=== PATIENT | male | born 1950 | race Caucasian/White ===

== ENCOUNTER 2016-10-28 14:14 | Emergency (ER) | payer MEDICARE ==
[~2016-10-28] VITALS: Ht 167.6 cm; Wt 80.0 kg
[2016-10-28] VITALS (7 sets, daily range): BP systolic 131–170; BP diastolic 58–79; PULSE 60–64; RESP 14–16; TEMP 98; O2SAT 96–99
[2016-10-28] MEDS ORDERED: LIPI40TA PO (17:41)
[2016-10-28] MEDS ORDERED: SODIUM CHLOR 0.9% 1000 ML INJ 1,000 ML IV SCH (17:55)
[2016-10-28] MEDS ORDERED: ONDANSETRON HCL 4 MG/2 ML VIAL IVP ONE (18:00)
[2016-10-28] MEDS ORDERED: SODIUM CHLORIDE 0.9% FLUSH 5 ML FLUSH IVF PRN (18:00)
[2016-10-28] MEDS ORDERED: MORPHINE SULFATE 4 MG/ML INJ IV PUSH ONE (18:00)
[2016-10-28 18:01] LABS: AUTOMATED NEUTROPHIL # 12.2 TH/MM3 (1.8-7.7); BASOPHIL # 0.1 TH/MM3 (0-0.2); BASOPHIL % 0.4 % (0.0-2.0); EOSINOPHIL % 0.1 % (0.0-4.0); HEMATOCRIT 43.1 % (39.0-51.0); HEMO FLAGS DIFF FINAL; LYMPH % 9.8 % (9.0-44.0); LYMPHOCYTE # 1.4 TH/MM3 (1.0-4.8); MEAN CELL VOLUME 93.5 FL (80.0-100.0); MEAN CORPUSCULAR HEMOGLOBIN 31.9 PG (27.0-34.0); MEAN CORPUSCULAR HGB CONC 34.2 % (32.0-36.0); MONO % 5.1 % (0.0-8.0); NEUT % 84.6 % (16.0-70.0); PLATELET COUNT 265 TH/MM3 (150-450); RED BLOOD COUNT 4.61 MIL/MM3 (4.50-5.90); WHITE BLOOD COUNT 14.4 TH/MM3 (4.0-11.0)
[2016-10-28 18:02] LABS: BLOOD, URINE LARGE (NEG); COMMENT (UR) CULT NOT INDICATED; CULTURE IF INDICATED CULT NOT INDICATED; GLUCOSE,URINE NEG (NEG); KETONE, URINE 10 mg/dL (NEG); MUCUS URINE MANY /lpf (OCC); NITRITE,URINE NEG (NEG); SQUAMOUS EPITHELIAL CELL URINE <1 /hpf (0-5); URINE COLOR YELLOW (YELLW/STRAW)
[2016-10-28 18:23] LABS: ALKALINE PHOSPHATASE 96 U/L (45-117); TOTAL BILIRUBIN ADULT 0.5 MG/DL (0.2-1.0)
[2016-10-28 18:26] LABS: ALT (GPT) 38 U/L (12-78); ANION GAP 8 MEQ/L (5-15); AST (GOT) 28 U/L (15-37); BICARBONATE 29.2 MEQ/L (21.0-32.0); BLOOD UREA NITROGEN 22 MG/DL (7-18); CHLORIDE 107 MEQ/L (98-107); GLOMERULAR FILTRATION RATE 53 ML/MIN (>89); POTASSIUM 4.5 MEQ/L (3.5-5.1); SODIUM (NA) 144 MEQ/L (136-145)
--- NOTE | 2016-10-28 18:39 | PD ---
HPI Chief Complaint: Abdominal Pain Time Seen by Provider: 17:43 Travel History International Travel<30 days: No Contact w/Intl Traveler<30days: No Traveled to known affect area: No History of Present Illness HPI Patient is a 66-year-old male with history of cholecystectomy 20 years ago in [facility], who presents to emergency room with complaints of nausea, vomiting and abdominal pain. Patient reports that since 7AM this morning, he has been having increased right upper quadrant abdominal pain. Patient reports associated nausea and vomiting with his symptoms. Patient reports that symptoms are coming and going, reports that when they come on, it lasts about 4 hours at a time. Patient reports that he still has pain to his right upper quadrant although less severe than this morning. Reports no fevers or chills. Denies any chest pain or shortness of breath at this time. Denies any recent travels or trips. Patient here for evaluation of right upper quadrant abdominal pain. PFSH Past Medical History Medical History: Denies Significant Hx Social History Alcohol Use: No Tobacco Use: Yes Substance Use: No Allergies-Medications (Allergen,Severity, Reaction): Coded Allergies: No Known Allergies (Unverified , 10/28/16) Reported Meds & Prescriptions Reported Meds & Active Scripts Active Reported Lipitor (Atorvastatin Calcium) 40 Mg Tab 40 Mg PO HS Review of Systems General / Constitutional: No: Fever Eyes: No: Visual changes HENT: No: Headaches Cardiovascular: No: Chest Pain or Discomfort Respiratory: No: Shortness of Breath Gastrointestinal: Positive: Nausea, Vomiting, Abdominal Pain Genitourinary: No: Dysuria Musculoskeletal: No: Pain Skin: No Rash Neurologic: No: Weakness Psychiatric: No: Depression Endocrine: No: Polydipsia Hematologic/Lymphatic: No: Easy Bruising Physical Exam Narrative GENERAL: Mild distress SKIN: Warm and dry. HEAD: Atraumatic. Normocephalic. EYES: No injection or drainage. ENT: No nasal bleeding or discharge. Mucous membranes pink and moist. NECK: Trachea midline. No JVD. CARDIOVASCULAR: Regular rate and rhythm. No murmur appreciated. RESPIRATORY: No accessory muscle use. Clear to auscultation. Breath sounds equal bilaterally. GASTROINTESTINAL: Abdomen soft, patient with mild right upper quadrant tenderness with no rebound or guarding on exam MUSCULOSKELETAL: No obvious deformities. No clubbing. No cyanosis. No edema. NEUROLOGICAL: Awake and alert. No obvious cranial nerve deficits. Motor grossly within normal limits. Normal speech. PSYCHIATRIC: Appropriate mood and affect; insight and judgment normal. Data Data Last Documented VS Vital Signs Date Time Temp Pulse Resp B/P Pulse Ox O2 Delivery O2 Flow Rate FiO2 10/28/16 18:28 16 10/28/16 18:00 60 145/67 96 Room Air 10/28/16 14:16 98.0 Orders Complete Blood Count With Diff (10/28/16 17:31) Comprehensive Metabolic Panel (10/28/16 17:31) Urinalysis - C+S If Indicated (10/28/16 17:31) Iv Access Insert/Monitor (10/28/16 17:31) Lipase (10/28/16 17:31) Prothrombin Time / Inr (Pt) (10/28/16 17:55) Act Partial Throm Time (Ptt) (10/28/16 17:55) Ecg Monitoring (10/28/16 17:55) Oximetry (10/28/16 17:55) NPO (10/28/16 17:55) Morphine Inj (Morphine Inj) (10/28/16 18:00) Ondansetron Inj (Zofran Inj) (10/28/16 18:00) Sodium Chlor 0.9% 1000 Ml Inj (Ns 1000 M (10/28/16 17:55) Sodium Chloride 0.9% Flush (Ns Flush) (10/28/16 18:00) Electrocardiogram (10/28/16 17:55) Chest, Single Ap (10/28/16 17:55) Ct Abd/Pel W/O Iv Contrast (10/28/16 18:45) Strain Urine PRN (10/28/16 19:42) Labs Laboratory Tests Test 10/28/16 10/28/16 10/28/16 17:30 17:40 18:00 White Blood Count 14.4 TH/MM3 Red Blood Count 4.61 MIL/MM3 Hemoglobin 14.7 GM/DL Hematocrit 43.1 % Mean Corpuscular Volume 93.5 FL Mean Corpuscular Hemoglobin 31.9 PG Mean Corpuscular Hemoglobin 34.2 % Concent Red Cell Distribution Width 14.0 % Platelet Count 265 TH/MM3 Mean Platelet Volume 9.2 FL Neutrophils (%) (Auto) 84.6 % Lymphocytes (%) (Auto) 9.8 % Monocytes (%) (Auto) 5.1 % Eosinophils (%) (Auto) 0.1 % Basophils (%) (Auto) 0.4 % Neutrophils # (Auto) 12.2 TH/MM3 Lymphocytes # (Auto) 1.4 TH/MM3 Monocytes # (Auto) 0.7 TH/MM3 Eosinophils # (Auto) 0.0 TH/MM3 Basophils # (Auto) 0.1 TH/MM3 CBC Comment DIFF FINAL Differential Comment Sodium Level 144 MEQ/L Potassium Level 4.5 MEQ/L Chloride Level 107 MEQ/L Carbon Dioxide Level 29.2 MEQ/L Anion Gap 8 MEQ/L Blood Urea Nitrogen 22 MG/DL Creatinine 1.35 MG/DL Estimat Glomerular Filtration 53 ML/MIN Rate Random Glucose 92 MG/DL Calcium Level 9.1 MG/DL Total Bilirubin 0.5 MG/DL Aspartate Amino Transf 28 U/L (AST/SGOT) Alanine Aminotransferase 38 U/L (ALT/SGPT) Alkaline Phosphatase 96 U/L Total Protein 7.6 GM/DL Albumin 4.1 GM/DL Lipase 108 U/L Urine Color YELLOW Urine Turbidity CLEAR Urine pH 6.0 Urine Specific [place] 1.019 Urine Protein 30 mg/dL Urine Glucose (UA) NEG mg/dL Urine Ketones 10 mg/dL Urine Occult Blood LARGE Urine Nitrite NEG Urine Bilirubin NEG Urine Urobilinogen LESS THAN 2.0 MG/DL Urine Leukocyte Esterase NEG Urine RBC 63 /hpf Urine WBC 1 /hpf Urine Squamous Epithelial <1 /hpf Cells Urine Mucus MANY /lpf Microscopic Urinalysis Comment CULT NOT INDICATED Prothrombin Time 10.5 SEC Prothromb Time International 1.0 RATIO Ratio Activated Partial 24.0 SEC Thromboplast Time MDM Medical Decision Making Medical Screen Exam Complete: Yes Emergency Medical Condition: Yes Interpretation(s) Vital Signs Date Time Temp Pulse Resp B/P Pulse Ox O2 Delivery O2 Flow Rate FiO2 10/28/16 18:28 16 10/28/16 18:00 60 16 145/67 96 Room Air 10/28/16 17:59 16 99 Room Air 10/28/16 17:00 64 16 138/58 98 Room Air 10/28/16 16:30 60 16 131/76 98 Room Air 10/28/16 16:30 16 10/28/16 14:16 98.0 60 14 170/79 99 Room Air Differential Diagnosis Choledocholithiasis, pancreatitis, appendicitis, gastritis, gastric enteritis, ACS Narrative Course Patient is a 66-year-old male who presents to emergency room with complaints of right upper quadrant abdominal pain since 7 AM this morning. Patient reports associated nausea vomiting with symptoms. Patient reports that he did have history of cholecystectomy 20 years ago in [place], reports no other abdominal surgeries in the past. Patient with no fevers or chills or no recent travels or trips. Patient with no chest pain or shortness of breath. Patient comfortable in the emergency room at this time, patient with mild pain to the abdomen. EKG ordered. X-ray of the chest ordered to evaluate for possible free air in abdomen. Labs as well as CAT scan the abdomen and pelvis ordered for further evaluation of symptoms. CBC wbc 14.4 hbg 14.7 hct 43.1 platelets 265 Sodium 144 Potassium 4.5 BUN 22 Creatinine 1.35 Carbon dioxide 29.2 Chloride 107 PT 10.5 PTT 24 INR 1.0 UA with large occult blood, 63 red blood cells, negative leuk esterase, negative nitrites, many urine mucus CT shows Last Impressions Abdomen/Pelvis CT 10/28/16 1845 Signed Impressions: Service Date/Time: Friday, October 28, 2016 19:05 - CONCLUSION: 1. Mild obstructive uropathy on the right secondary to a distal ureteral calculus measuring 5 mm. 2. Scattered areas of wall thickening throughout the colon versus nondistention. Patient may benefit from a nonemergent colonoscopy. Jadon Snowden MD Chest X-Ray 10/28/16 8052 Signed Impressions: Service Date/Time: Friday, October 28, 2016 18:20 - CONCLUSION: No acute disease. Jadon Snowden MD copies of pt's studies given to patient - I did review all incidental findings with patient and his family in detail. Patient understands signs and symptoms of when to return to the emergency room Diagnosis Primary Impression: Kidney stone on right side Additional Impression: Renal insufficiency Referrals: Michael Vazquez DO Patient Instructions: Narcotic given in the ED, General Instructions Departure Forms: Tests/Procedures, Work Release Enter return to work date: Nov 02, 2016 Additional Instructions: Please provide patient with a copy of his lab work and studies at discharge Please drink plenty of fluids Please bring your urine, bring your kidney stone to your urologist office appointment further evaluation of kidney stone pathology Please do not drive while taking narcotic pain medications Return to the emergency room immediately if symptoms progress or worsen or if he develops any fevers or chills or intractable pain Please call the urologist for earliest follow-up appointment Please call your primary care doctor for earliest follow-up appointment Med/Other Pt SpecificInfo: Prescription(s) given Scripts Tamsulosin (Flomax)0.4 Mg Cap0.4 Mg PO HS #15 CAP Ref 0 Prov:Brigitte Johns DO 10/28/16 Oxycodone-Acetaminophen (Percocet)5-325 mg Tab1 Tab PO Q6H PRN (PAIN) #15 TAB Ref 0 Prov:Brigitte Johns DO 10/28/16 Ibuprofen 600 Mg [id number] Mg PO Q6H PRN (Pain/Inflammation) #40 TAB Ref 0 Prov:Brigitte Johns DO 10/28/16 Ciprofloxacin (Cipro)500 Mg [id number] Mg PO BID 5 Days Ref 0 Prov:Brigitte Johns DO 10/28/16 Disposition: 01 DISCHARGE HOME Condition: Stable Brigitte Johns DO Oct 28, 2016 18:39
--- NOTE | 2016-10-28 18:45 | RADRPT ---
EXAM DATE/TIME: 10/28/2016 18:20 [facility] COMPARISON: No previous studies available for comparison. INDICATIONS : Chest pain. MEDICAL HISTORY : None. SURGICAL HISTORY : None. ENCOUNTER: Initial ACUITY: 3 days PAIN SCORE: 7/10 LOCATION: Bilateral upper chest FINDINGS: A single view of the chest demonstrates the lungs to be symmetrically aerated without evidence of mas s, infiltrate or effusion. The cardiomediastinal contours are unremarkable. Osseous structures are intact. CONCLUSION: No acute disease. Jadon Snowden MD on October 28, 2016 at 18:43 Board Certified Radiologist. This report was verified electronically.
[2016-10-28 19:00] LABS: PROTHROMBIN TIME - PATIENT 10.5 SEC (9.8-11.6)
--- NOTE | 2016-10-28 19:28 | RADRPT ---
EXAM DATE/TIME: 10/28/2016 19:05 [facility] COMPARISON: No previous studies available for comparison. INDICATIONS : Diffuse abdomen pain and nausea today. ORAL CONTRAST: No oral contrast ingested. RADIATION DOSE: 9.96 CTDIvol (mGy) MEDICAL HISTORY : None SURGICAL HISTORY : None. ENCOUNTER: Initial ACUITY: 1 day PAIN SCALE: 7/10 LOCATION: Bilateral abdomen TECHNIQUE: Volumetric scanning of the abdomen and pelvis was performed. Using automated exposure control and ad justment of the mA and/or kV according to patient size, radiation dose was kept as low as reasonably achievable to obtain optimal diagnostic quality images. FINDINGS: LOWER LUNGS: The visualized lower lungs are clear. LIVER: Homogeneous density without lesion. There is no dilation of the biliary tree. Cholecystectomy clips. SPLEEN: Normal size without lesion. PANCREAS: Within normal limits. KIDNEYS: There is mild obstructive uropathy secondary to distal ureteral calculus measuring 5 mm. There are in flammatory changes adjacent to the right kidney. There is no mass, stone, or hydronephrosis of left k idney. ADRENAL GLANDS: Within normal limits. VASCULAR: There is no aortic aneurysm. BOWEL/MESENTERY: There is some wall thickening involving transverse, descending and rectosigmoid colon. This may be re lated to nondistention.. There is no free intraperitoneal air or fluid. ABDOMINAL WALL: Within normal limits. RETROPERITONEUM: There is no lymphadenopathy. BLADDER: No wall thickening or mass. REPRODUCTIVE: Within normal limits. INGUINAL: There is no lymphadenopathy or hernia. MUSCULOSKELETAL: Degenerative changes thoracolumbar spine. CONCLUSION: 1. Mild obstructive uropathy on the right secondary to a distal ureteral calculus measuring 5 mm. 2. Scattered areas of wall thickening throughout the colon versus nondistention. Patient may benefit from a nonemergent colonoscopy. Jadon Snowden MD on October 28, 2016 at 19:24 Board Certified Radiologist. This report was verified electronically.
[2016-10-28] MEDS ORDERED: PERC5TAB12 PO (20:06)
[2016-10-28] MEDS ORDERED: TAMS5CAP PO (20:06)
[2016-10-28] MEDS ORDERED: CIPR-9 PO (20:06)
[2016-10-28] MEDS ORDERED: IBUP-232 PO (20:06)
[2016-10-28] MEDS ORDERED: TAMSULOSIN HCL 0.4 MG CAP PO ONE (20:15)
--- NOTE | 2016-10-29 12:36 | EKG ---
Date Performed: 10/28/2016 Time Performed: 17:08:44 PTAGE: 66 years EKG: Sinus rhythm MINOR T WAVE FLATTENING NO PREVIOUS TRACING DOCTOR: Sunil Montoya Interpretating Date/Time 10/29/2016 12:36:14
--- NOTE | 2016-11-18 09:17 | HHI.HP ---
[facility] Service Family Medicine Primary Care Physician Win Osorio MD Admission Diagnosis Diagnoses: International Travel<30 Days: No Contact w/Intl Traveler<30days: No Known Affected Area: No History of Present Illness 66 y/o Male with PMHx of HLP and cholecystectomy, presenting with worsening abdominal pain. He was seen in [place] ED for RUQ abdominal pain on October 28 2016 - found to have distal ureteral stone measuring [address] and well as thickening of colonic wall. He was recommended to f/u with a urologist, but unfortunately was not able to set this up. Past Family Social History Allergies: Coded Allergies: No Known Allergies (Unverified , 11/18/16) Physical Exam Physical Exam GENERAL: This is a well-nourished, well-developed patient, in no apparent distress. SKIN: No rashes, ecchymoses or lesions. Cool and dry. HEAD: Atraumatic. Normocephalic. No temporal or scalp tenderness. EYES: Pupils equal round and reactive. Extraocular motions intact. No scleral icterus. No injection or drainage. ENT: Nose without bleeding, purulent drainage or septal hematoma. Throat without erythema, tonsillar hypertrophy or exudate. Uvula midline. Airway patent. NECK: Trachea midline. No JVD or lymphadenopathy. Supple, nontender, no meningeal signs. CARDIOVASCULAR: Regular rate and rhythm without murmurs, gallops, or rubs. RESPIRATORY: Clear to auscultation. Breath sounds equal bilaterally. No wheezes , rales, or rhonchi. GASTROINTESTINAL: Abdomen soft, non-tender, nondistended. No hepato-splenomegaly , or palpable masses. No guarding. MUSCULOSKELETAL: Extremities without clubbing, cyanosis, or edema. No joint tenderness, effusion, or edema noted. No calf tenderness. Negative Homans sign bilaterally. NEUROLOGICAL: Awake and alert. Cranial nerves II through XII intact. Motor and sensory grossly within normal limits. Five out of 5 muscle strength in all muscle groups. Normal speech. Assessment and Plan Assessment and Plan 66 y/o male with PMHx of HLP, and gall bladder disease, presenting to [place] ED with worsening Abdominal pain x 3 weeks and 5 mm calculi at the UVJ on the right with mild hydronephrosis found on CT. He has worsening renal function, Cr increasing from 1.4 --> 1.77. He will be admitted for pain control, urology consult for possible retrieval / intervention, as well as a GI consult for colonic wall thickening. Physician Certification Order for Inpatient Services The services are ordered in accordance with Medicare regulations or non- Medicare payer requirements, as applicable. In the case of services not specified as inpatient-only, they are appropriately provided as inpatient services in accordance with the 2-midnight benchmark. days is the estimated time the patient will need to remain in the hospital, assuming treatment plan goals are met and no additional complications. Post-Hospital Plan: Home Antony Macias MD R2 Nov 18, 2016 09:17
== END 2016-10-28 20:22 | disposition home or self-care (01) ==
LOC: NEPA 14:14
DX: N20.0 Calculus of kidney (principal); N28.9 Disorder of kidney and ureter, unspecified; Z72.0 Tobacco use
CPT/HCPCS: 71010; 74176; 80053; 81001; 83690; 85025; 85610; 85730; 93005; 96361; 96374; 96375; 99284; J2270; J2405; J7030

== ENCOUNTER 2016-11-18 06:58 | Observation (INO) | payer MEDICARE ==
[~2016-11-18] VITALS: Ht 167.6 cm; Wt 80.0 kg
[~2016-11-18 06:58] MED LIST: CIPR-9 PO; IBUP-232 PO; LIPI40TA PO; PERC5TAB12 PO; TAMS5CAP PO
[2016-11-18 07:02] VITALS: BP 160/70; PULSE 53; RESP 14; TEMP 97.5; O2SAT 100
[2016-11-18 07:38] VITALS: RESP 17; O2SAT 99
--- NOTE | 2016-11-18 07:40 | PD ---
HPI Chief Complaint: Abdominal Pain Time Seen by Provider: 07:28 Travel History International Travel<30 days: No Contact w/Intl Traveler<30days: No Traveled to known affect area: No History of Present Illness HPI 66-year-old male complains of right low quadrant abdominal pain. Patient states the pain is sharp pain localized to right lower quadrant of the abdomen. Patient denies any pain radiation. Patient was seen in emergency room October for abdominal pain. CT positive for right-sided nephrolithiasis. Patient was advised to follow-up with urologist. Patient has not done so. Patient states that he has relief of pain for 3 days between the time he was here until now. Patient states that the pain is given worse for the past few days. Patient states that he had diarrhea yesterday. Patient states that he has nausea but no vomiting. Patient denies dysuria or frequency. Patient denies any fever chills. On a scale of 1-10 the pain is a 9. Patient status post cholecystectomy 20 years ago. Patient has history of dyslipidemia. PFSH Past Medical History High Cholesterol: Yes Diminished Hearing: No Tetanus Vaccination: > 5 Years Influenza Vaccination: No Past Surgical History Appendectomy: Yes Social History Alcohol Use: No Tobacco Use: Yes (5 cigarrettes per day) Substance Use: No Allergies-Medications (Allergen,Severity, Reaction): Coded Allergies: No Known Allergies (Unverified , 11/18/16) Reported Meds & Prescriptions Reported Meds & Active Scripts Active Flomax (Tamsulosin HCl) 0.4 Mg Cap 0.4 Mg PO HS Percocet (Oxycodone-Acetaminophen) 5-325 mg Tab 1 Tab PO Q6H PRN Ibuprofen 600 Mg Tab 600 Mg PO Q6H PRN Cipro (Ciprofloxacin HCl) 500 Mg Tab 500 Mg PO BID 5 Days Reported Lipitor (Atorvastatin Calcium) 40 Mg Tab 40 Mg PO HS Review of Systems General / Constitutional: No: Fever Eyes: No: Visual changes HENT: No: Headaches Cardiovascular: No: Chest Pain or Discomfort Respiratory: No: Shortness of Breath Gastrointestinal: Positive: Nausea, Diarrhea, Abdominal Pain Genitourinary: No: Dysuria Musculoskeletal: No: Pain Skin: No Rash Neurologic: No: Weakness Psychiatric: No: Depression Endocrine: No: Polydipsia Hematologic/Lymphatic: No: Easy Bruising Physical Exam Narrative GENERAL: Well-nourished, well-developed patient. SKIN: Focused skin assessment warm/dry. HEAD: Normocephalic. EYES: No scleral icterus. No injection or drainage. NECK: Supple, trachea midline. No JVD or lymphadenopathy. CARDIOVASCULAR: Regular rate and rhythm without murmurs, gallops, or rubs. RESPIRATORY: Breath sounds equal bilaterally. No accessory muscle use. GASTROINTESTINAL: Abdomen soft, nondistended. Mild tenderness on palpation right lower quadrant of the abdomen. No rebound tenderness. No mass. MUSCULOSKELETAL: No cyanosis, or edema. BACK: Nontender without obvious deformity. No CVA tenderness. Neurologic exam normal. Data Data Last Documented VS Vital Signs Date Time Temp Pulse Resp B/P Pulse Ox O2 Delivery O2 Flow Rate FiO2 11/18/16 07:38 17 99 Room Air 11/18/16 07:02 97.5 53 160/70 Orders Complete Blood Count With Diff (11/18/16 07:33) Comprehensive Metabolic Panel (11/18/16 07:33) Urinalysis - C+S If Indicated (11/18/16 07:33) Ct Abd/Pel W/O Iv Contrast (11/18/16 07:33) Iv Access Insert/Monitor (11/18/16 07:33) Ecg Monitoring (11/18/16 07:33) Oximetry (11/18/16 07:33) Sodium Chlor 0.9% 1000 Ml Inj (Ns 1000 M (11/18/16 09:15) Morphine Inj (Morphine Inj) (11/18/16 09:15) Ondansetron Inj (Zofran Inj) (11/18/16 09:15) Admit Order (Ed Use Only) (11/18/16 09:14) Labs Laboratory Tests Test 11/18/16 11/18/16 07:30 07:50 White Blood Count 9.4 TH/MM3 Red Blood Count 4.33 MIL/MM3 Hemoglobin 13.8 GM/DL Hematocrit 40.3 % Mean Corpuscular Volume 93.1 FL Mean Corpuscular Hemoglobin 31.9 PG Mean Corpuscular Hemoglobin 34.3 % Concent Red Cell Distribution Width 14.1 % Platelet Count 215 TH/MM3 Mean Platelet Volume 8.8 FL Neutrophils (%) (Auto) 69.2 % Lymphocytes (%) (Auto) 19.8 % Monocytes (%) (Auto) 8.8 % Eosinophils (%) (Auto) 1.8 % Basophils (%) (Auto) 0.4 % Neutrophils # (Auto) 6.5 TH/MM3 Lymphocytes # (Auto) 1.9 TH/MM3 Monocytes # (Auto) 0.8 TH/MM3 Eosinophils # (Auto) 0.2 TH/MM3 Basophils # (Auto) 0.0 TH/MM3 CBC Comment DIFF FINAL Differential Comment Sodium Level 141 MEQ/L Potassium Level 4.5 MEQ/L Chloride Level 106 MEQ/L Carbon Dioxide Level 31.3 MEQ/L Anion Gap 4 MEQ/L Blood Urea Nitrogen 23 MG/DL Creatinine 1.77 MG/DL Estimat Glomerular Filtration 39 ML/MIN Rate Random Glucose 85 MG/DL Calcium Level 9.2 MG/DL Total Bilirubin 0.7 MG/DL Aspartate Amino Transf 21 U/L (AST/SGOT) Alanine Aminotransferase 25 U/L (ALT/SGPT) Alkaline Phosphatase 89 U/L Total Protein 7.1 GM/DL Albumin 4.1 GM/DL Urine Color YELLOW Urine Turbidity CLEAR Urine pH 6.0 Urine Specific [place] 1.034 Urine Protein 30 mg/dL Urine Glucose (UA) NEG mg/dL Urine Ketones 10 mg/dL Urine Occult Blood SMALL Urine Nitrite NEG Urine Bilirubin NEG Urine Urobilinogen LESS THAN 2.0 MG/DL Urine Leukocyte Esterase NEG Urine RBC 9 /hpf Urine WBC 1 /hpf Urine Renal Epithelial Cells <1 /hpf Microscopic Urinalysis Comment CULT NOT INDICATED MDM Medical Decision Making Medical Screen Exam Complete: Yes Emergency Medical Condition: Yes Interpretation(s) Last Impressions Abdomen/Pelvis CT 11/18/16 0733 Signed Impressions: Service Date/Time: Friday, November 18, 2016 08:06 - CONCLUSION: 1. 5 mm right uterovesical junction stone with mild hydronephrosis 2. Possible mucosal mass in the sigmoid colon. Endoscopy is recommended for further evaluation if clinically indicated. Cameron Ryder MD 8:57 AM. CBC within normal limit. BUN 23. Creatinine 1.77. UA positive for RBC. Differential Diagnosis Differential diagnosis including nephrolithiasis, UTI, pyelonephritis, appendicitis. Narrative Course 66-year-old male with right low quadrant abdominal pain. History of kidney stone on the right side. Normal saline solution 1 L IV bolus. Morphine 2 mg IV. Zofran 4 mg IV. Diagnosis Primary Impression: Nephrolithiasis Additional Impressions: Renal insufficiency Colonic mass Otilio Sy MD Nov 18, 2016 07:40
[2016-11-18 08:12] LABS: AUTOMATED NEUTROPHIL # 6.5 TH/MM3 (1.8-7.7); BASOPHIL % 0.4 % (0.0-2.0); EOSINOPHIL # 0.2 TH/MM3 (0-0.4); EOSINOPHIL % 1.8 % (0.0-4.0); HEMATOCRIT 40.3 % (39.0-51.0); HEMO FLAGS DIFF FINAL; LYMPH % 19.8 % (9.0-44.0); LYMPHOCYTE # 1.9 TH/MM3 (1.0-4.8); MEAN CELL VOLUME 93.1 FL (80.0-100.0); MEAN CORPUSCULAR HEMOGLOBIN 31.9 PG (27.0-34.0); MEAN CORPUSCULAR HGB CONC 34.3 % (32.0-36.0); MONO % 8.8 % (0.0-8.0); NEUT % 69.2 % (16.0-70.0); PLATELET COUNT 215 TH/MM3 (150-450); RED BLOOD COUNT 4.33 MIL/MM3 (4.50-5.90); RED CELL DISTRIBUTION WIDTH 14.1 % (11.6-17.2); WHITE BLOOD COUNT 9.4 TH/MM3 (4.0-11.0)
[2016-11-18 08:21] LABS: BLOOD, URINE SMALL (NEG); COMMENT (UR) CULT NOT INDICATED; CULTURE IF INDICATED CULT NOT INDICATED; GLUCOSE,URINE NEG (NEG); KETONE, URINE 10 mg/dL (NEG); NITRITE,URINE NEG (NEG); RENAL EPITHELIAL CELLS <1 /hpf; URINE COLOR YELLOW (YELLW/STRAW)
--- NOTE | 2016-11-18 08:32 | RADRPT ---
EXAM DATE/TIME: 11/18/2016 08:06 [facility] COMPARISON: CT ABDOMEN & PELVIS W/O CONTRAST, October 28, 2016, 19:05. INDICATIONS : Right lower quadrant pain. ORAL CONTRAST: No oral contrast ingested. RADIATION DOSE: 13.28 CTDIvol (mGy) MEDICAL HISTORY : Renal calculi. SURGICAL HISTORY : Cholecystectomy. ENCOUNTER: Initial ACUITY: 3 weeks PAIN SCALE: 7/10 LOCATION: Right lower quadrant TECHNIQUE: Volumetric scanning of the abdomen and pelvis was performed. Using automated exposure control and ad justment of the mA and/or kV according to patient size, radiation dose was kept as low as reasonably achievable to obtain optimal diagnostic quality images. FINDINGS: Examination of the lung bases demonstrates no abnormality. No pleural fluid is identified. No pulmona ry nodules are present. The liver and spleen are normal in size and no focal defects are identified. The gallbladder is absent. The pancreas demonstrates normal contour without evidence of mass or ducta l dilatation. The adrenal glands are unremarkable. The left kidney is unremarkable. There is mild rig ht hydronephrosis and hydroureter to a stone measuring 5 mm at the right uterovesical junction. The bladder appears normal. No wall thickening or intraluminal masses are identified. There is possib le mucosal abnormality involving the distal sigmoid colon with wall thickening over a 2 cm segment. N o abnormally enlarged lymph nodes are identified. No free fluid is identified. CONCLUSION: 1. 5 mm right uterovesical junction stone with mild hydronephrosis 2. Possible mucosal mass in the sigmoid colon. Endoscopy is recommended for further evaluation if cli nically indicated. Cameron Ryder MD on November 18, 2016 at 8:26 Board Certified Radiologist. This report was verified electronically.
[2016-11-18 08:35] LABS: ANION GAP 4 MEQ/L (5-15); AST (GOT) 21 U/L (15-37); BICARBONATE 31.3 MEQ/L (21.0-32.0); BLOOD UREA NITROGEN 23 MG/DL (7-18); CHLORIDE 106 MEQ/L (98-107); GLOMERULAR FILTRATION RATE 39 ML/MIN (>89); POTASSIUM 4.5 MEQ/L (3.5-5.1); SODIUM (NA) 141 MEQ/L (136-145)
[2016-11-18 08:38] LABS: ALKALINE PHOSPHATASE 89 U/L (45-117); ALT (GPT) 25 U/L (12-78); TOTAL BILIRUBIN ADULT 0.7 MG/DL (0.2-1.0)
[2016-11-18] MEDS ORDERED: ONDANSETRON HCL 4 MG/2 ML VIAL IV PUSH ONE (09:15)
[2016-11-18] MEDS ORDERED: SODIUM CHLOR 0.9% 1000 ML INJ 1,000 ML IV ONE (09:15)
[2016-11-18] MEDS ORDERED: MORPHINE SULFATE 4 MG/ML INJ IV PUSH ONE (09:15)
--- NOTE | 2016-11-18 09:34 | HHI.HP ---
[facility] Service Family Medicine Primary Care Physician Win Osorio MD Admission Diagnosis nephrolithiasis. Renal insufficiency. Colon Mass Diagnoses: International Travel<30 Days: No Contact w/Intl Traveler<30days: No Known Affected Area: No History of Present Illness Mr. Spencer is a pleasant 66-year-old gentleman, who presented to the [place] emergency department on October 28, 2016, with right upper quadrant abdominal pain. CT scan at that time showed a 5 mm distal ureteral stone with mild hydronephrosis. He was discharged home with pain medications, Flomax, and 5 days of ciprofloxacin. Initially, he had improving symptoms. His abdominal pain lessened. However, approximately one week ago, the right upper quadrant abdominal pain returned. The pain is sharp and stabbing, comes for 30-35 minutes, and is relieved for 15 minutes. He reports that the pain comes in waves. The pain radiates to the middle of his abdomen. He has been taking ibuprofen 800 mg every 4 hours, with no relief of his pain. He also reports decreased by mouth intake, secondary to nausea. He also has been having diarrhea for the past week, that is watery, 5-6 x per day. He denies blood in his urine or in his stools. He had a colonoscopy in [place] 1-2 years ago , but cannot remember the results. Review of systems: Reports headache, but denies chest pain, shortness of breath , change of vision, difficulty with swallowing, indigestion. He says that he has lost 2 pounds over the past 3 weeks, however has not lost weight over the past several months. He says that he feels warm, but denies sweating or chills. (Antony Macias MD R2) Past Family Social History Past Medical History Hyperlipidemia, taking Lipitor. Denies a history of coronary artery disease, stroke, liver disease, lung disease , diabetes. Past Surgical History Open right cholecystectomy, approximately 20 years ago. (Antony Macias MD R2) Allergies: Coded Allergies: No Known Allergies (Unverified , 11/18/16) Family History Mom - 90 years old, in good health. Father - had a heart attack at age 65. Brothers - 3 with kidney stones, one at 38 from pancreatitis, another with leukemia. Sisters - HLD, HTN, DM Social History Social EtOH never to excess Tob + 3 cig daily for 40 years (Antony Macias MD R2) Physical Exam Vital Signs Vital Signs Date Time Temp Pulse Resp B/P Pulse Ox O2 Delivery O2 Flow Rate FiO2 11/18/16 07:38 17 99 Room Air 11/18/16 07:28 17 11/18/16 07:02 97.5 53 14 160/70 100 Room Air Physical Exam GENERAL: This is a well-nourished, well-developed patient, in no apparent distress. SKIN: No rashes, ecchymoses or lesions. Cool and dry. HEAD: Atraumatic. Normocephalic. No temporal or scalp tenderness. EYES: Pupils equal round and reactive. Extraocular motions intact. No scleral icterus. No injection or drainage. ENT: Nose without bleeding, purulent drainage or septal hematoma. Throat without erythema, tonsillar hypertrophy or exudate. Uvula midline. Airway patent. NECK: Trachea midline. No JVD or lymphadenopathy. Supple, nontender, no meningeal signs. CARDIOVASCULAR: Regular rate and rhythm without murmurs, gallops, or rubs. RESPIRATORY: Clear to auscultation. Breath sounds equal bilaterally. No wheezes , rales, or rhonchi. GASTROINTESTINAL: Abdomen soft, non-tender, nondistended. No hepato-splenomegaly , or palpable masses. No guarding. MUSCULOSKELETAL: Extremities without clubbing, cyanosis, or edema. No joint tenderness, effusion, or edema noted. No calf tenderness. Negative Homans sign bilaterally. NEUROLOGICAL: Awake and alert. Cranial nerves II through XII intact. Motor and sensory grossly within normal limits. Five out of 5 muscle strength in all muscle groups. Normal speech. Laboratory Laboratory Tests Test 11/18/16 11/18/16 07:30 07:50 White Blood Count 9.4 Red Blood Count 4.33 Hemoglobin 13.8 Hematocrit 40.3 Mean Corpuscular Volume 93.1 Mean Corpuscular Hemoglobin 31.9 Mean Corpuscular Hemoglobin 34.3 Concent Red Cell Distribution Width 14.1 Platelet Count 215 Mean Platelet Volume 8.8 Neutrophils (%) (Auto) 69.2 Lymphocytes (%) (Auto) 19.8 Monocytes (%) (Auto) 8.8 Eosinophils (%) (Auto) 1.8 Basophils (%) (Auto) 0.4 Neutrophils # (Auto) 6.5 Lymphocytes # (Auto) 1.9 Monocytes # (Auto) 0.8 Eosinophils # (Auto) 0.2 Basophils # (Auto) 0.0 CBC Comment DIFF FINAL Differential Comment Sodium Level 141 Potassium Level 4.5 Chloride Level 106 Carbon Dioxide Level 31.3 Anion Gap 4 Blood Urea Nitrogen 23 Creatinine 1.77 Estimat Glomerular Filtration 39 Rate Random Glucose 85 Calcium Level 9.2 Total Bilirubin 0.7 Aspartate Amino Transf 21 (AST/SGOT) Alanine Aminotransferase 25 (ALT/SGPT) Alkaline Phosphatase 89 Total Protein 7.1 Albumin 4.1 Urine Color YELLOW Urine Turbidity CLEAR Urine pH 6.0 Urine Specific [place] 1.034 Urine Protein 30 Urine Glucose (UA) NEG Urine Ketones 10 Urine Occult Blood SMALL Urine Nitrite NEG Urine Bilirubin NEG Urine Urobilinogen LESS THAN 2.0 Urine Leukocyte Esterase NEG Urine RBC 9 Urine WBC 1 Urine Renal Epithelial Cells <1 Microscopic Urinalysis Comment CULT NOT INDICATED (Antony Macias MD R2) Result Diagram: 11/18/1630 11/18/16 0730 Assessment and Plan Assessment and Plan 66-year-old, pleasant male, presenting with worsening right upper quadrant abdominal pain for the past 3 weeks. He was found to have a 5 mm obstructing UVJ stone, with mild hydronephrosis on the right. He will be admitted for pain control, IV hydration, and a urologic evaluation. In addition, there was a possible mucosal mass in the sigmoid colon. Endoscopy may be recommended for further evaluation. Code Status Full Code. (Antony Macias MD R2) Attending Attestation THIS CASE WAS DISCUSSED WITH THE RESIDENT PHYSICIANS. I HAVE REVIEWED THE RECORD AND AGREE WITH THE ABOVE NOTE AND PLAN OF CARE WAS DISCUSSED. I HAVE AUTHORIZED THE ORDER FOR ADMISSION TO AN IN-PATIENT STATUS. (Roderick London MD) Problem List: (1) Nephrolithiasis Status: Acute Plan: 5 mm right UVJ stone with mild hydronephrosis. Patient in a significant amount of pain, and has not been eating over the past 3 weeks. UA showed no signs of infection. Not septic on exam. -Consult urology, we appreciate their recommendations. -IV fluids at 1.5 maintenance NS -Pain control with: -Percocet 10-325 mg pain 1-5 -Percocet 10-325 mg 2 tablets pain 6-10 -DIlaudid 0.5 mg IV q 3 hrs breakthrough. -Flomax 0.4 mg by mouth daily at bedtime. -NPO for possible surgical intervention (2) Colonic mass Status: Acute Plan: Consult GI for possible colonoscopy as rec by radiology for suspicious lesion on CT abd. No red flags on exam - no significant weight loss, no blood in his stool, no melena, no family history. (3) Renal insufficiency Status: Acute Plan: Increase in creatinine from 1.35 --> 1.77, may be contributed to obstructive uropathy vs NSAID use. Continue to monitor BMP, monitor urine output, avoid nephrotoxic agents. (4) Hyperlipidemia Status: Acute Plan: Hold home Lipitor while acutely ill. (5) Nutrition, metabolism, and development symptoms Status: Acute Plan: N: NPO Electrolytes: At goal Fluids: NS at 125 ml/hr. DVT: SCDs wdw Dr. London. (Antony Macias MD R2) Physician Certification 2 Midnight Certification Type: Admission for Inpatient Services Order for Inpatient Services The services are ordered in accordance with Medicare regulations or non- Medicare payer requirements, as applicable. In the case of services not specified as inpatient-only, they are appropriately provided as inpatient services in accordance with the 2-midnight benchmark. Estimated LOS (days): 2 2 days is the estimated time the patient will need to remain in the hospital, assuming treatment plan goals are met and no additional complications. Post-Hospital Plan: Home (Antony Macias MD R2) Antony Macias MD R2 Nov 18, 2016 09:34 Roderick London MD Nov 18, 2016 12:10
[2016-11-18 09:52] VITALS: BP 150/71; PULSE 56; RESP 17; TEMP 97.8; O2SAT 99
[2016-11-18] MEDS ORDERED: oxyCODONE/ACETAMINOPHEN 5 MG/325 MG TAB PO PRN (10:00)
[2016-11-18] MEDS ORDERED: ACETAMINOPHEN 325 MG TAB PO PRN (10:00)
[2016-11-18] MEDS ORDERED: ONDANSETRON HCL 4 MG/2 ML VIAL IV PRN (10:00)
[2016-11-18] MEDS ORDERED: cloNIDine HCL 0.1 MG TAB PO PRN (10:00)
[2016-11-18] MEDS ORDERED: oxyCODONE/ACETAMINOPHEN 10 MG/325 MG TAB PO PRN (10:00)
[2016-11-18] MEDS ORDERED: SODIUM CHLORIDE 0.9% FLUSH 10 ML FLUSH IVF PRN (10:00)
[2016-11-18] MEDS: SODIUM CHLOR 0.9% 1000 ML INJ 1,000 ML IV SCH ×2 (10:07→18:00)
[2016-11-18] MEDS: HYDROmorphone HCL PF 1 MG/ML VIAL IV PRN ×4 (10:08→21:18)
[2016-11-18] MEDS ORDERED: hydrALAZINE HCL 10 MG TAB PO PRN (10:30)
[2016-11-18 10:57] LABS: URIC ACID 3.4 MG/DL (2.6-7.2)
--- NOTE | 2016-11-18 12:10 | HHI.HP ---
[facility] Service Family Medicine Primary Care Physician Win Osorio MD Admission Diagnosis nephrolithiasis. Renal insufficiency. Colon Mass Diagnoses: (1) Nephrolithiasis (2) Colonic mass (3) Renal insufficiency (4) Hyperlipidemia (5) Nutrition, metabolism, and development symptoms International Travel<30 Days: No Contact w/Intl Traveler<30days: No Known Affected Area: No History of Present Illness 66-year-old male presenting to the emergency department with right sided flank pain. This pain has gotten worse over the last week but has been present for one month. He was seen in the emergency department on October 28 for the same complaint and was found to have a 5 mm distal ureteral stone with mild hydronephrosis. He was discharged home with pain medications, Flomax, and ciprofloxacin 5 days and initially did very well. His abdominal pain improved and he was able to eat and drink without significant nausea. However, over the last week he has had progressive right sided flank pain rated as an 8/9 out of 10 at its worse and is associated with waves of nausea. He also endorses watery diarrhea without blood in it. He has been unable to eat due to nausea but has been able to drink fluids. He does endorse chills but denies fevers, denies vomiting, denies hematuria or dysuria, denies constipation. Repeat CT scan of the abdomen shows a 5 mm right ureterovesical junction stone with mild hydronephrosis. Possible mucosal mass in the sigmoid colon. He states that he has had a colonoscopy in [place] 1-2 years ago, but cannot remember the results. Review of Systems Constitutional: COMPLAINS OF: Diaphoretic episodes, Chills, Change in appetite , DENIES: Fever, Dizziness Endocrine: DENIES: Heat/cold intolerance Respiratory: DENIES: Cough, Wheezing, Sputum production, Shortness of breath Cardiovascular: DENIES: Chest pain, Palpitations, Syncope, Dyspnea on Exertion Gastrointestinal: COMPLAINS OF: Abdominal pain, Diarrhea, Nausea, Anorexia, DENIES: Black stools, Bloody stools, Constipation, Vomiting, Difficulty Swallowing Musculoskeletal: DENIES: Joint pain Past Family Social History Past Medical History Hyperlipidemia, taking Lipitor. Denies a history of coronary artery disease, stroke, liver disease, lung disease , diabetes. Past Surgical History Open right cholecystectomy, approximately 20 years ago. Allergies: Coded Allergies: No Known Allergies (Unverified , 11/18/16) Family History Mom - 90 years old, in good health. Father - had a heart attack at age 65. Brothers - 3 with kidney stones, one at 38 from pancreatitis, another with leukemia. Sisters - HLD, HTN, DM Social History Social EtOH never to excess Tob + 3 cig daily for 40 years Physical Exam Vital Signs Vital Signs Date Time Temp Pulse Resp B/P Pulse Ox O2 Delivery O2 Flow Rate FiO2 11/18/16 10:33 17 11/18/16 09:52 97.8 56 17 150/71 99 Room Air 11/18/16 09:18 17 11/18/16 07:38 17 99 Room Air 11/18/16 07:28 17 11/18/16 07:02 97.5 53 14 160/70 100 Room Air Physical Exam GENERAL: This is a well-nourished, well-developed patient, in no apparent distress. SKIN: No rashes, ecchymoses or lesions. Cool and dry. EYES: No injection or jaundice CARDIOVASCULAR: Regular rate and rhythm without murmurs, gallops, or rubs. RESPIRATORY: Clear to auscultation. Breath sounds equal bilaterally. No wheezes , rales, or rhonchi. GASTROINTESTINAL: Abdomen soft, non-tender, nondistended. Mildly tender to palpation on the right flank but this is after receiving pain medication NEUROLOGICAL: Awake and alert. Laboratory Laboratory Tests Test 11/18/16 11/18/16 07:30 07:50 White Blood Count 9.4 Red Blood Count 4.33 Hemoglobin 13.8 Hematocrit 40.3 Mean Corpuscular Volume 93.1 Mean Corpuscular Hemoglobin 31.9 Mean Corpuscular Hemoglobin 34.3 Concent Red Cell Distribution Width 14.1 Platelet Count 215 Mean Platelet Volume 8.8 Neutrophils (%) (Auto) 69.2 Lymphocytes (%) (Auto) 19.8 Monocytes (%) (Auto) 8.8 Eosinophils (%) (Auto) 1.8 Basophils (%) (Auto) 0.4 Neutrophils # (Auto) 6.5 Lymphocytes # (Auto) 1.9 Monocytes # (Auto) 0.8 Eosinophils # (Auto) 0.2 Basophils # (Auto) 0.0 CBC Comment DIFF FINAL Differential Comment Sodium Level 141 Potassium Level 4.5 Chloride Level 106 Carbon Dioxide Level 31.3 Anion Gap 4 Blood Urea Nitrogen 23 Creatinine 1.77 Estimat Glomerular Filtration 39 Rate Random Glucose 85 Uric Acid 3.4 Calcium Level 9.2 Total Bilirubin 0.7 Aspartate Amino Transf 21 (AST/SGOT) Alanine Aminotransferase 25 (ALT/SGPT) Alkaline Phosphatase 89 Total Protein 7.1 Albumin 4.1 Amylase Level 51 Lipase 167 Urine Color YELLOW Urine Turbidity CLEAR Urine pH 6.0 Urine Specific [place] 1.034 Urine Protein 30 Urine Glucose (UA) NEG Urine Ketones 10 Urine Occult Blood SMALL Urine Nitrite NEG Urine Bilirubin NEG Urine Urobilinogen LESS THAN 2.0 Urine Leukocyte Esterase NEG Urine RBC 9 Urine WBC 1 Urine Renal Epithelial Cells <1 Microscopic Urinalysis Comment CULT NOT INDICATED Result Diagram: 11/18/1672911/18/16729 Imaging Last 24 hours Impressions Abdomen/Pelvis CT 11/18/16732 Signed Impressions: Service Date/Time: Wednesday, November 18, 2016 08:06 - CONCLUSION: 1. 5 mm right uterovesical junction stone with mild hydronephrosis 2. Possible mucosal mass in the sigmoid colon. Endoscopy is recommended for further evaluation if clinically indicated. Cameron Ryder MD Assessment and Plan Assessment and Plan 66-year-old, pleasant male, presenting with right flank pain and found to have a 5 mm obstructing ureterovesical junction stone Problem List: (1) Nephrolithiasis Status: Acute Plan: 5 mm right UVJ stone with mild hydronephrosis. Patient in a significant amount of pain, and has not been eating over the past 3 weeks. UA showed no signs of infection. Not septic on exam. Worsening renal function with creatinine of 1.77 today - Initial presentation on 10/28/16 with a creatinine of 1.35 -Consult urology, we appreciate their recommendations. -IV fluids at 1.5 maintenance NS -Pain control with: -Percocet 10-325 mg pain 1-5 -Percocet 10-325 mg 2 tablets pain 6-10 -DIlaudid 0.5 mg IV q 3 hrs breakthrough. -Flomax 0.4 mg by mouth daily at bedtime. -NPO for possible surgical intervention No leukocytosis or fevers at this time, no evidence of systemic illness so antibiotics have not been started In the emergency department he received 2 mg of morphine IV 1 as well as a 1 L normal saline bolus (2) Colonic mass Status: Acute Plan: CT scan today shows a possible mucosal mass in the sigmoid colon - This is associated with 5-6 days of watery diarrhea - Review of CT scan on 10/28/16 shows some wall thickening involving the transverse, descending, and rectosigmoid colon Consult GI for possible colonoscopy as rec by radiology for suspicious lesion on CT abd. No red flags on exam - no significant weight loss, no blood in his stool, no melena, no family history. (3) Renal insufficiency Status: Acute Plan: Increase in creatinine from 1.35 --> 1.77, may be contributed to obstructive uropathy vs NSAID use. Continue to monitor BMP, monitor urine output, avoid nephrotoxic agents. Normal saline at 125 mL/hour - Received normal saline bolus of 1 L in the emergency department (4) Hyperlipidemia Status: Acute Plan: Hold home Lipitor while acutely ill. (5) Nutrition, metabolism, and development symptoms Status: Acute Plan: N: NPO Electrolytes: At goal Fluids: NS at 125 ml/hr. DVT: SCDs Physician Certification 2 Midnight Certification Type: Admission for Inpatient Services Order for Inpatient Services The services are ordered in accordance with Medicare regulations or non- Medicare payer requirements, as applicable. In the case of services not specified as inpatient-only, they are appropriately provided as inpatient services in accordance with the 2-midnight benchmark. Estimated LOS (days): 2 2 days is the estimated time the patient will need to remain in the hospital, assuming treatment plan goals are met and no additional complications. Post-Hospital Plan: Not yet determined Roderick London MD Nov 18, 2016 12:10
[2016-11-18 13:50] VITALS: BP 113/73; PULSE 58; RESP 17; TEMP 97.8; O2SAT 98
--- NOTE | 2016-11-18 15:15 | PD.CONS ---
HPI History of Present Illness This is a 66 year old who came to the ER for evaluation of RUQ pain. He was here earlier this month for the same pain and diagnosed with a right sided kidney stone and was discharged on Cipro, Flomax, and pain meds. He reports that he did improve, but that he never passed this stone. His pain then returned about 3 weeks ago. This is an intermittent sharp pain in his right upper quadrant that radiates around to his side. He has associated nausea with vomiting. No fevers/chills, no decreased appetite, weight loss, constipation, melena, hematochezia, dysuria, or hematuria. He does report that he has had a couple of loose bowel movements for the past 2 days. Abdomen/Pelvis CT (11/18/16 )-----> 1. 5 mm right uterovesical junction stone with mild hydronephrosis 2. Possible mucosal mass in the sigmoid colon. Endoscopy is recommended for further evaluation if clinically indicated. He reports that he had a normal colonoscopy 1.5-2 years ago in [place]. (Sophia Aguilera) PFSH Past Medical History Hyperlipidemia Past Surgical History Colonoscopy 1.5- 2years ago in [place], normal per patient. Open cholecystectomy (Sophia Aguilera) Coded Allergies: No Known Allergies (Unverified , 11/18/16) Medications Allergies Coded Allergies Type Severity Reaction Last Updated Verified No Known Allergies 11/18/16 No Active Scripts Medications Dose Route/Sig Days Date Category Flomax (Tamsulosin HCl) 0.4 Mg Cap 0.4 Mg PO HS 10/28/16 Rx Percocet (Oxycodone-Acetaminophen) 5-325 mg Tab 1 Tab PO Q6H PRN 10/28/16 Rx Ibuprofen 600 Mg Tab 600 Mg PO Q6H PRN 10/28/16 Rx Cipro (Ciprofloxacin HCl) 500 Mg Tab 500 Mg PO BID 5 10/28/16 Rx Lipitor (Atorvastatin Calcium) 40 Mg Tab 40 Mg PO HS 10/28/16 Reported Family History Mom - 90 years old, in good health. Father from [place] Brothers, one at 38 from pancreatitis, another alive with hx leukemia. Sisters - HLD, HTN, DM Social History Social EtOH never to excess Tob + 2 cig daily for last 10 years, smoked more x 30 years (Sophia Aguilera) Review of Systems Constitutional: DENIES: Fever, Weight loss, Chills, Change in appetite Respiratory: DENIES: Cough, Shortness of breath Cardiovascular: COMPLAINS OF: Chest pain (ASSOCIATED WITH ABDOMINAL PAIN.), DENIES: Palpitations, Lower Extremity Edema Gastrointestinal: COMPLAINS OF: Abdominal pain, Diarrhea, Nausea, DENIES: Black stools, Bloody stools, Constipation, Vomiting, Anorexia, Swelling of Abdomen, Heartburn, Hematemesis Genitourinary: DENIES: Hematuria, Dysuria Musculoskeletal: COMPLAINS OF: Back pain, DENIES: Joint pain Hematologic/lymphatic: DENIES: Bruising Neurologic: DENIES: Headache Psychiatric: DENIES: Confusion (Sophia Aguilera) GI Exam Vitals I&O Vital Signs Date Time Temp Pulse Resp B/P Pulse Ox O2 Delivery O2 Flow Rate FiO2 11/18/16 14:20 17 11/18/16 13:50 97.8 58 17 113/73 98 Room Air 11/18/16 09:52 97.8 56 17 150/71 99 Room Air 11/18/16 09:18 17 11/18/16 07:38 17 99 Room Air 11/18/16 07:28 17 11/18/16 07:02 97.5 53 14 160/70 100 Room Air I/O 11/17/16 11/17/16 11/17/16 11/18/16 11/18/16 11/18/16 07:00 15:00 23:00 07:00 15:00 23:00 Output Total 600 ml Balance -600 ml Output Urine Total 600 ml # Voids 1 # Bowel Movements 0 Imaging Last Impressions Abdomen/Pelvis CT 11/18/16 0733 Signed Impressions: Service Date/Time: Friday, November 18, 2016 08:06 - CONCLUSION: 1. 5 mm right uterovesical junction stone with mild hydronephrosis 2. Possible mucosal mass in the sigmoid colon. Endoscopy is recommended for further evaluation if clinically indicated. Cameron Ryder MD Laboratory Test 11/18/16 11/18/16 07:30 07:50 White Blood Count 9.4 TH/MM3 Red Blood Count 4.33 MIL/MM3 Hemoglobin 13.8 GM/DL Hematocrit 40.3 % Mean Corpuscular Volume 93.1 FL Mean Corpuscular Hemoglobin 31.9 PG Mean Corpuscular Hemoglobin 34.3 % Concent Red Cell Distribution Width 14.1 % Platelet Count 215 TH/MM3 Mean Platelet Volume 8.8 FL Neutrophils (%) (Auto) 69.2 % Lymphocytes (%) (Auto) 19.8 % Monocytes (%) (Auto) 8.8 % Eosinophils (%) (Auto) 1.8 % Basophils (%) (Auto) 0.4 % Neutrophils # (Auto) 6.5 TH/MM3 Lymphocytes # (Auto) 1.9 TH/MM3 Monocytes # (Auto) 0.8 TH/MM3 Eosinophils # (Auto) 0.2 TH/MM3 Basophils # (Auto) 0.0 TH/MM3 CBC Comment DIFF FINAL Differential Comment Sodium Level 141 MEQ/L Potassium Level 4.5 MEQ/L Chloride Level 106 MEQ/L Carbon Dioxide Level 31.3 MEQ/L Anion Gap 4 MEQ/L Blood Urea Nitrogen 23 MG/DL Creatinine 1.77 MG/DL Estimat Glomerular Filtration 39 ML/MIN Rate Random Glucose 85 MG/DL Uric Acid 3.4 MG/DL Calcium Level 9.2 MG/DL Total Bilirubin 0.7 MG/DL Aspartate Amino Transf 21 U/L (AST/SGOT) Alanine Aminotransferase 25 U/L (ALT/SGPT) Alkaline Phosphatase 89 U/L Total Protein 7.1 GM/DL Albumin 4.1 GM/DL Amylase Level 51 U/L Lipase 167 U/L Urine Color YELLOW Urine Turbidity CLEAR Urine pH 6.0 Urine Specific [place] 1.034 Urine Protein 30 mg/dL Urine Glucose (UA) NEG mg/dL Urine Ketones 10 mg/dL Urine Occult Blood SMALL Urine Nitrite NEG Urine Bilirubin NEG Urine Urobilinogen LESS THAN 2.0 MG/DL Urine Leukocyte Esterase NEG Urine RBC 9 /hpf Urine WBC 1 /hpf Urine Renal Epithelial Cells <1 /hpf Microscopic Urinalysis Comment CULT NOT INDICATED Physical Examination HEENT: normocephalic; atraumatic; no jaundice. Throat is clear. NECK: Neck is supple, no JVD, no lymphadenopathy. CHEST: Chest is clear to auscultation and percussion. CARDIAC: Regular rate and rhythm with no murmur gallop or rubs. ABDOMEN: Soft, nondistended, nontender; no hepatosplenomegaly; bowel sounds are present in all four quadrants. EXTREMITIES: No clubbing, cyanosis, or edema. SKIN: Normal; no rash; no jaundice. WILDERNESS GUIDE: No focal deficits; alert and oriented times three. (Sophia Aguilera) Assessment and Plan Plan ASSESSMENT: - Abnormal imaging with possible mucosal lesion in sigmoid colon. He came in for recurrently abdominal pain in RUQ----> back (had similar pain earlier this month and was diagnosed with nephrolithiasis and discharged home on cipro, flomax, and pain meds). Symptoms improved and then returned 3 weeks ago with RUQ pain, nausea without vomiting. 2 loose stools yesterday. No other GI symptoms. Abdomen/Pelvis CT (11/18/16)-----> 1. 5 mm right uterovesical junction stone with mild hydronephrosis 2. Possible mucosal mass in the sigmoid colon. Endoscopy is recommended for further evaluation if clinically indicated. He reports that he had a normal colonoscopy 1.5-2 years ago in [place]. Of note, he also had a noncontrasted CT scan abdomen/pelvis (10/28/16)---> which revealed scattered areas of wall thickening throughout the colon vs. nondistention. Pt may benefit from nonemergent colonoscopy. - Right uterovesical junction stone with mild hydronephrosis. IVF, consulted. - TONYA, likely obstructive. consulted. PLAN: - Plan for colonoscopy in am - Obtain consents - Clear liquids - NPO after MN - Golytely prep - Supportive care - Further recommendations to follow based on results of above - Pt seen and examined by Dr. Bernal and myself and this note is written on his behalf (Sophia Aguilera) Physician Comments Patient seen and examined Agree with above Continue with current supportive care Monitor labs Plan a colonoscopy tomorrow (Rolly Bernal MD) Sophia Aguilera Nov 18, 2016 15:15 Rolly Bernal MD Nov 18, 2016 20:09
[2016-11-18 15:40] VITALS: BP 122/73; PULSE 56; RESP 18; TEMP 97.6; O2SAT 92
[2016-11-18] MEDS ORDERED: PEG (High)/E-LYTE SOLN 4000 ML BTL PO ONE (16:00)
[2016-11-18 17:28] VITALS: PULSE 60; RESP 18; O2SAT 95
--- NOTE | 2016-11-18 17:53 | PD.CONS ---
HPI Service Urology Consult Requested By Reason for Consult Nephrolithiasis Primary Care Physician Win Osorio MD Diagnosis: History of Present Illness 66 yo male with history right flank pain for approx 2 weeks not with significant right flank pain and a 5mm right distal ureteral stone. Patient has had pain in his right flank radiating to the right groin for approx 2 weeks now. The pain has progressively worsened to now sharp and stabbing, with severe pain, located mainly in the right flank and RLQ. No hematuria. No fevers. He has had some nausea. CT scan identified a 5mm right distal ureteral stone, mild to moderate right hydronephrosis noted. Currently the patient appears well and comfortable. However he would like intervention regarding this stone as he has had this pain for several weeks now. No history of kidney stones. Mild increase in Cr to 1.7 from 1.3 Review of Systems ROS Limitations: Clinical Condition Constitutional: DENIES: Fever Endocrine: DENIES: Heat/cold intolerance Eyes: DENIES: Blurred vision Ears, nose, mouth, throat: DENIES: Hearing loss Respiratory: DENIES: Cough Cardiovascular: DENIES: Chest pain Gastrointestinal: COMPLAINS OF: Abdominal pain, Nausea Genitourinary: DENIES: Urinary frequency, Urgency, Hematuria, Dysuria Musculoskeletal: COMPLAINS OF: Back pain Integumentary: DENIES: Rash Hematologic/lymphatic: DENIES: Bruising Immunologic/allergic: DENIES: Urticaria Neurologic: DENIES: Abnormal gait, Headache Psychiatric: DENIES: Anxiety Except as stated in HPI: all other systems reviewed are Neg Past Family Social History Past Medical History Hyperlipidemia, taking Lipitor. Denies a history of coronary artery disease, stroke, liver disease, lung disease , diabetes. Past Surgical History Open right cholecystectomy, approximately 20 years ago Reported Medications Reported Meds & Active Scripts Active Flomax (Tamsulosin HCl) 0.4 Mg Cap 0.4 Mg PO HS Percocet (Oxycodone-Acetaminophen) 5-325 mg Tab 1 Tab PO Q6H PRN Ibuprofen 600 Mg Tab 600 Mg PO Q6H PRN Cipro (Ciprofloxacin HCl) 500 Mg Tab 500 Mg PO BID 5 Days Reported Lipitor (Atorvastatin Calcium) 40 Mg Tab 40 Mg PO HS Allergies: Coded Allergies: No Known Allergies (Unverified , 11/18/16) Active Ordered Medications Current Medications Medications (Trade) Dose Ordered Sig/Faraz Route Start Time Stop Time Status Last Admin (NS 1000 ml Inj) 1,000 ml @ 125 mls/hr Q8H IV 11/18/16 10:00 11/18/16 10:07 (NS Flush) 2 ml BID IVF 11/18/16 21:00 (NS Flush) 2 ml UNSCH PRN IVF 11/18/16 10:00 (Tylenol) 650 mg Q4H PRN PO 11/18/16 10:00 (Percocet 5-325 Mg) 1 tab Q4H PRN PO 11/18/16 10:00 (Dilaudid Pf Inj) 1 mg Q3H PRN IV 11/18/16 10:00 11/18/16 13:50 (Flomax) 0.4 mg HS PO 11/18/16 21:00 (Zofran Inj) 4 mg Q6H PRN IV 11/18/16 10:00 (Percocet 10-325 Mg) 1 tab Q4H PRN PO 11/18/16 10:00 (Apresoline) 10 mg Q6HR PRN PO 11/18/16 10:30 Family History Mom - 90 years old, in good health. Father - had a heart attack at age 65. Brothers - 3 with kidney stones, one at 38 from pancreatitis, another with leukemia. Sisters - HLD, HTN, DM Social History Social EtOH Tobacco daily for 40 years Physical Exam Vital Signs Date Time Temp Pulse Resp B/P Pulse Ox O2 Delivery O2 Flow Rate FiO2 11/18/16 17:28 60 18 95 11/18/16 15:40 97.6 56 18 122/73 92 11/18/16 14:20 17 11/18/16 13:50 97.8 58 17 113/73 98 Room Air 11/18/16 09:52 97.8 56 17 150/71 99 Room Air 11/18/16 09:18 17 11/18/16 07:38 17 99 Room Air 11/18/16 07:28 17 11/18/16 07:02 97.5 53 14 160/70 100 Room Air Physical Exam GENERAL: This is a well-nourished, well-developed patient, in no apparent distress. SKIN: No rashes, ecchymoses or lesions. Cool and dry. HEAD: Atraumatic. Normocephalic.. EYES: Extraocular motions intact. . ENT: Nose without bleeding, purulent drainage. Airway patent. NECK: Trachea midline. CARDIOVASCULAR: Normla pulses, extermities wel lperfused RESPIRATORY: Nonlabored respirations, equal chest rise GASTROINTESTINAL: Abdomen soft, non-tender, nondistended MUSCULOSKELETAL: Extremities without clubbing, cyanosis, or edema. NEUROLOGICAL: Awake and alert. Motor and sensory grossly within normal limits. Normal speech. Lab results reviewed: Yes Laboratory Tests Test 11/18/16 11/18/16 07:30 07:50 White Blood Count 9.4 Red Blood Count 4.33 Hemoglobin 13.8 Hematocrit 40.3 Mean Corpuscular Volume 93.1 Mean Corpuscular Hemoglobin 31.9 Mean Corpuscular Hemoglobin 34.3 Concent Red Cell Distribution Width 14.1 Platelet Count 215 Mean Platelet Volume 8.8 Neutrophils (%) (Auto) 69.2 Lymphocytes (%) (Auto) 19.8 Monocytes (%) (Auto) 8.8 Eosinophils (%) (Auto) 1.8 Basophils (%) (Auto) 0.4 Neutrophils # (Auto) 6.5 Lymphocytes # (Auto) 1.9 Monocytes # (Auto) 0.8 Eosinophils # (Auto) 0.2 Basophils # (Auto) 0.0 CBC Comment DIFF FINAL Differential Comment Sodium Level 141 Potassium Level 4.5 Chloride Level 106 Carbon Dioxide Level 31.3 Anion Gap 4 Blood Urea Nitrogen 23 Creatinine 1.77 Estimat Glomerular Filtration 39 Rate Random Glucose 85 Uric Acid 3.4 Calcium Level 9.2 Total Bilirubin 0.7 Aspartate Amino Transf 21 (AST/SGOT) Alanine Aminotransferase 25 (ALT/SGPT) Alkaline Phosphatase 89 Total Protein 7.1 Albumin 4.1 Amylase Level 51 Lipase 167 Urine Color YELLOW Urine Turbidity CLEAR Urine pH 6.0 Urine Specific [place] 1.034 Urine Protein 30 Urine Glucose (UA) NEG Urine Ketones 10 Urine Occult Blood SMALL Urine Nitrite NEG Urine Bilirubin NEG Urine Urobilinogen LESS THAN 2.0 Urine Leukocyte Esterase NEG Urine RBC 9 Urine WBC 1 Urine Renal Epithelial Cells <1 Microscopic Urinalysis Comment CULT NOT INDICATED Result Diagram: 11/18/1672911/18/16729 Personally reviewed images: Yes Imaging Last Impressions Abdomen/Pelvis CT 11/18/1633 Signed Impressions: Service Date/Time: Friday, November 18, 2016 08:06 - CONCLUSION: 1. 5 mm right uterovesical junction stone with mild hydronephrosis 2. Possible mucosal mass in the sigmoid colon. Endoscopy is recommended for further evaluation if clinically indicated. Cameron Ryder MD Assessment and Plan Problem List: (1) Kidney stone on right side ICD Code: N20.0 Status: Acute (2) Renal insufficiency ICD Code: N28.9 Status: Acute Assessment and Plan -Discussed treatment options of ureteral stent placement vs observation -Patient would like intervention and is agreeable to stent placement to alleviate his pain. Patient understands this requires close follow-up after stent placement for definitive stone management -NPO -Schedule for OR today or tomorrow for right ureteral stent placement Colby Rondon MD Nov 18, 2016 17:53
--- NOTE | 2016-11-18 19:51 | EKG ---
Date Performed: 11/18/2016 Time Performed: 10:51:51 PTAGE: 66 years EKG: SINUS BRADYCARDIA NONSPECIFIC T-WAVE ABNORMALITY BORDERLINE ECG PREVIOUS TRACING : 10/28/2016 17.08 Compared to prior tracing no significant change DOCTOR: Michelle Limon Interpretating Date/Time 11/18/2016 19:50:14
[2016-11-18] MEDS: SODIUM CHLORIDE 0.9% FLUSH 10 ML FLUSH IVF SCH (21:00)
[2016-11-18] MEDS ORDERED: TAMSULOSIN HCL 0.4 MG CAP PO SCH (21:00)
[2016-11-19] MEDS: SODIUM CHLOR 0.9% 1000 ML INJ 1,000 ML IV SCH ×2 (02:07→11:03)
[2016-11-19 04:21] LABS: AUTOMATED NEUTROPHIL # 5.2 TH/MM3 (1.8-7.7); BASOPHIL % 0.3 % (0.0-2.0); EOSINOPHIL # 0.1 TH/MM3 (0-0.4); EOSINOPHIL % 1.1 % (0.0-4.0); HEMATOCRIT 37.4 % (39.0-51.0); HEMO FLAGS DIFF FINAL; LYMPH % 24.9 % (9.0-44.0); MEAN CELL VOLUME 93.5 FL (80.0-100.0); MEAN CORPUSCULAR HEMOGLOBIN 31.2 PG (27.0-34.0); MEAN CORPUSCULAR HGB CONC 33.4 % (32.0-36.0); MONO % 8.9 % (0.0-8.0); NEUT % 64.8 % (16.0-70.0); PLATELET COUNT 188 TH/MM3 (150-450); RED CELL DISTRIBUTION WIDTH 13.8 % (11.6-17.2); WHITE BLOOD COUNT 8.1 TH/MM3 (4.0-11.0)
[2016-11-19 04:53] LABS: BICARBONATE 30.9 MEQ/L (21.0-32.0)
[2016-11-19] MEDS ORDERED: MIDAZOLAM HCL 2 MG/2 ML VIAL ONE (07:33)
[2016-11-19] MEDS ORDERED: FAMOTIDINE 20 MG/2 ML VIAL ONE (07:33)
--- NOTE | 2016-11-19 08:13 | HHI.PR ---
Subjective Patient symptoms today Successful right ureteral stent placement Patient clear for discharge from Urology standpoint with follow-up in clinic in 1-2 weeks for definitive stone management Objective Vital Signs Vital Signs Date Time Temp Pulse Resp B/P Pulse Ox O2 Delivery O2 Flow Rate FiO2 11/18/16 18:23 16 11/18/16 17:28 60 18 95 11/18/16 15:40 97.6 56 18 122/73 92 11/18/16 13:50 97.8 58 17 113/73 98 Room Air 11/18/16 09:52 97.8 56 17 150/71 99 Room Air 11/18/16 09:18 17 Result Diagram: 11/19/16 0340 11/19/16 0340 Medications and IVs Current Medications Medications (Trade) Dose Ordered Sig/Faraz Route Start Time Stop Time Status Last Admin (NS 1000 ml Inj) 1,000 ml @ 125 mls/hr Q8H IV 11/18/16 10:00 11/19/16 02:07 (NS Flush) 2 ml BID IVF 11/18/16 21:00 (NS Flush) 2 ml UNSCH PRN IVF 11/18/16 10:00 (Tylenol) 650 mg Q4H PRN PO 11/18/16 10:00 (Percocet 5-325 Mg) 1 tab Q4H PRN PO 11/18/16 10:00 (Dilaudid Pf Inj) 1 mg Q3H PRN IV 11/18/16 10:00 11/18/16 21:18 (Flomax) 0.4 mg HS PO 11/18/16 21:00 11/18/16 21:11 (Zofran Inj) 4 mg Q6H PRN IV 11/18/16 10:00 (Percocet 10-325 Mg) 1 tab Q4H PRN PO 11/18/16 10:00 (Apresoline) 10 mg Q6HR PRN PO 11/18/16 10:30 (Pneumovax-23 Inj) 25 mcg ONCE ONCE IM 11/19/16 10:00 11/19/16 10:01 Assessment and Plan Problem List: (1) Kidney stone on right side ICD Code: N20.0 Status: Acute (2) Renal insufficiency ICD Code: N28.9 Status: Acute Colby Rondon MD Nov 19, 2016 08:13
[2016-11-19] MEDS: SODIUM CHLORIDE 0.9% FLUSH 10 ML FLUSH IVF SCH (09:00)
[2016-11-19] MEDS ORDERED: DO NOT ADM ANY ANTICOAGULANT DRUGS PRN (09:00)
[2016-11-19] MEDS ORDERED: PNEUMOCOCCAL POLYVALENT INJ 25 MCG/0.5 ML SYR IM ONE (10:00)
[2016-11-19 10:34] VITALS: BP 161/77; PULSE 68; RESP 17; TEMP 97.6; O2SAT 95
[2016-11-19] MEDS ORDERED: PROPOFOL 200 MG/20 ML AMP IV ONE ×2 (12:00→12:50)
[2016-11-19 12:26] VITALS: BP 161/77; PULSE 68; RESP 17; TEMP 97.6; O2SAT 95
[2016-11-19 12:43] LABS: C. DIFF EPI 027 PRESUMPTIVE NEGATIVE (NEGATIVE); C. DIFF TOXIN PCR NEGATIVE (NEGATIVE)
[2016-11-19 13:08] VITALS: TEMP 97.5
--- NOTE | 2016-11-19 13:08 | GIPROC ---
[facility] [address] [facility] [facility]. [facility], [address] COLONOSCOPY PROCEDURE REPORT EXAM DATE: 11/19/2016 PATIENT NAME: Jass Connelly MR #: [id number] BIRTHDATE: 1950 ENDOSCOPIST: Rolly Bernal MD ORDER #: [id number] EPIC DIRECTOR: Parrish Phillip and Roberto Mcpherson STATUS: inpatient INDICATIONS: The patient is a 66 yr old male here for a colonoscopy due to abnormal imaging suggesting mucosal mass PROCEDURE PERFORMED: Colonoscopy with polypectomy MEDICATIONS: None and Per Anesthesia. PREP QUALITY: good ESTIMATED BLOOD LOSS: None CONSENT: The patient understands the risks and benefits of the procedure and understands that these risks include, but are not limited to: sedation, allergic reaction, infection, perforation and/or bleeding. Alternative means of evaluation and treatment include, among others: physical exam, x-rays, and/or surgical intervention. The patient elects to proceed with this endoscopic procedure. medical equipment was checked for proper function. Hand hygiene and appropriate measures for infection prevention was taken. After the risks, benefits and alternatives of the procedure were thoroughly explained, Informed consent was verified, confirmed and timeout was successfully executed by the treatment team. A digital exam revealed no abnormalities of the rectum The Pentax [id number] and [id number] endoscope was introduced through the anus and advanced to the cecum, which was identified by both the appendix and ileocecal valve. The instrument was then slowly withdrawn as the colon was fully examined. COLON FINDINGS: Two small sessile polyps were found in the distal transverse colon and sigmoid colon. Adenomatous. A polypectomy was performed with a cold snare. The resection was complete and the polyp tissue was completely retrieved. The colon mucosa was otherwise normal. Retroflexed views revealed no abnormalities The scope was then completely withdrawn from the patient and the procedure terminated. PROCEDURE WITHDRAWAL TIME:10.6minutes ADVERSE EVENTS: There were no complications. IMPRESSIONS: 1. Two small sessile polyps were found in the distal transverse colon and sigmoid colon; Adenomatous; polypectomy was performed with a cold snare 2. The colon mucosa was otherwise normal 3. Retroflexed views revealed no abnormalities 4. Revealed no abnormalities of the rectum RECOMMENDATIONS: 1. Await biopsy results. Biopsy results will not be ready for 7-10 days. If you don't hear from us in two weeks, call our office for results. 2. High fiber diet 3. Yearly hemoccult 4. Follow-up: GI Clinic PRN RECALL: Return 5 years Colonoscopy Rolly Bernal MD eSigned: Rolly Bernal MD 11/19/2016 1:07 PM cc:
[2016-11-19 13:30] VITALS: BP 139/74; PULSE 62; RESP 16; O2SAT 100
--- NOTE | 2016-11-19 14:46 | HHI.DCPOC ---
Discharge Care Plan Diagnosis: (1) Kidney stone on right side (2) Colon polyp Goals to Promote Your Health Kidney stones: Follow up with Dr. Rondon in 1-2 weeks. take pain medication as needed. Colonoscopy: You will receive a call regarding biopsy results, if no call within 14 days, please contact office of Dr. Bernal. It will be important to have follow up colonoscopy in 5 years. Directions to Meet Your Goals Take your medications as prescribed Follow your dietary instruction Follow activity as directed Keep your appointments as scheduled Take your immunizations and boosters as scheduled If your symptoms worsen call your PCP, if no PCP go to Urgent Care Center or Emergency Room Smoking is Dangerous to Your Health. Avoid second hand smoke Call the 24-hour hour crisis hotline for domestic abuse at Chhaya Iraheta MD Nov 19, 2016 14:46
--- NOTE | 2016-11-19 14:52 | HHI.FPPN ---
Subjective Remarks Patient doing well post op. He reports that right flank pain now minimal discomfort, does not need analgesia. He has urination since stent placed. No GI complaints s/p colonoscopy. No fever, chills, headache, dizziness, n/v/d. He has yet to have lunch. Objective Vitals Vital Signs Date Time Temp Pulse Resp B/P Pulse Ox O2 Delivery O2 Flow Rate FiO2 11/19/16 13:30 62 16 139/74 100 11/19/16 13:20 65 16 139/74 100 11/19/16 13:08 97.5 59 16 125/72 100 11/19/16 12:26 97.6 68 17 161/77 95 11/19/16 10:34 97.6 68 17 161/77 95 11/19/16 09:05 98.1 71 16 145/73 97 Room Air 11/19/16 09:00 68 16 145/75 94 Room Air 11/19/16 08:45 75 16 144/74 95 Room Air 11/19/16 08:30 81 15 140/71 95 Room Air 11/19/16 08:23 97.9 84 15 131/66 99 Simple Mask 6 11/18/16 18:23 16 11/18/16 17:28 60 18 95 11/18/16 15:40 97.6 56 18 122/73 92 I/O 11/18/16 11/18/16 11/18/16 11/19/16 11/19/16 11/19/16 07:00 15:00 23:00 07:00 15:00 23:00 Intake Total 875 ml Output Total 600 ml 120 ml Balance -600 ml 755 ml Intake IV Total 75 ml Other 800 ml Output Urine Total 600 ml 100 ml Estimated Blood Loss 20 ml # Voids 1 # Bowel Movements 0 Result Diagram: 11/19/16 0340 11/19/16 0340 Objective Remarks GENERAL: This is a well-nourished, well-developed patient, in no apparent distress. SKIN: No rashes, ecchymoses or lesions. Cool and dry. HEAD: Atraumatic. Normocephalic. EYES: Pupils equal round and reactive. Extraocular motions intact. No scleral icterus. No injection or drainage. ENT: Nose without bleeding, purulent drainage or septal hematoma. NECK: Trachea midline. No JVD or lymphadenopathy. Supple, nontender, no meningeal signs. CARDIOVASCULAR: Regular rate and rhythm without murmurs, gallops, or rubs. RESPIRATORY: Clear to auscultation. Breath sounds equal bilaterally. No wheezes , rales, or rhonchi. GASTROINTESTINAL: Abdomen soft, non-tender, nondistended. No hepato-splenomegaly , or palpable masses. No guarding. : No CVA tenderness. MUSCULOSKELETAL: Extremities without clubbing, cyanosis, or edema. NEUROLOGICAL: Awake and alert. Cranial nerves II through XII intact. Motor and sensory grossly within normal limits. Five out of 5 muscle strength in all muscle groups. Normal speech. Urinary Catheter: No Vascular Central Line Catheter: No A/P Assessment and Plan 66-year-old, pleasant male, presenting with right flank pain and found to have a 5 mm obstructing ureterovesical junction stone, s/p stent placement. GI consulted for sigmoid mass on CT abd, patient now s/p colonoscopy. wdw: Dr. [place] Discharge Planning home today Problem List: (1) Nephrolithiasis Status: Acute Plan: 5 mm right UVJ stone with mild hydronephrosis. S/P right ureteral stent placement today. Urology cleared patient for dc home, to follow up in 1-2 weeks. GFR improved from 39 -> 65. UA negative for UTI. Vital signs within normal range. -Consult urology, appreciate recommendations -DC home -Flomax 0.4 mg by mouth daily at bedtime. -Continue home dose Percocet prn pain (2) Colonic mass Status: Acute Plan: CT scan today shows a possible mucosal mass in the sigmoid colon - This is associated with 5-6 days of watery diarrhea - Review of CT scan on 10/28/16 shows some wall thickening involving the transverse, descending, and rectosigmoid colon GI conducted colonoscopy today, significant for sessile adenomatous polyps x 2. Pathology pending. -GI cleared patient for DC; will call patient in 7-10 days with biopsy results; recommend yearly Hemoccult with repeat colonoscopy in 5 years (3) Renal insufficiency Status: Chronic Plan: creatinine trending down from 1.77 - > 1.14; responding to normal saline at 125 mL/hour -Maintain po hydration (4) Hyperlipidemia Status: Chronic Plan: Hold home Lipitor while acutely ill. (5) Nutrition, metabolism, and development symptoms Status: Acute Plan: Heart Healthy diet Electrolytes: At goal Fluids: HLIV DVT: SCDs Chhaya Iraheta MD Nov 19, 2016 14:52
--- NOTE | 2016-11-23 09:34 | MP ---
cc: EVERT BARAHONA MD DATE OF SURGERY: 11/19/2016 PREOPERATIVE DIAGNOSIS Right nephrolithiasis. POSTOPERATIVE DIAGNOSIS Right nephrolithiasis. SURGEON Evert Barahona MD PROCEDURE PERFORMED 1. Cystoscopy. 2. Right ureteral stent placement. PERTINENT FINDINGS 1. Right distal obstructing ureteral stone with difficulty in passing the wire up beyond. 2. Successful placement of a 6 x 24 double-J ureteral stent on the right. INDICATION Jass Zamora is a 66-year-old male who was found to have right-sided nephrolithiasis. The patient has been having pain and discomfort on the right side for over two weeks and recently was admitted to [facility] with a noted 5 mm distal UVJ stone and mild to moderate right-sided nephrosis and significant right flank pain. Therefore, the patient presents today for placement of a right ureteral stent. PROCEDURE IN DETAIL After proper informed consent was obtained, the patient was brought to the operating room and laid supine on the operating table. The patient was then placed under general anesthesia. The patient was placed in lithotomy position, prepped and draped in the standard surgical fashion. After proper timeout was completed, a rigid cystoscope was inserted through the urethra into the bladder. The urethral mucosa was within normal limits without any abnormalities or lesions. Upon entering the bladder the bilateral ureteral orifices were identified. The right ureter was noted and cannulated using the guidewire; however, resistance was met at the distal portion of the ureter. Therefore, an open-ended 5-[place] ureteral catheter was placed over the wire into the right distal ureter. Some manipulation of the wire was completed which was able to allow the wire to pass down and up into the right collecting system. At this point a 6 x 24 double-J ureteral stent was successfully placed at the right collecting system with good curl in the renal pelvis as well as in the bladder. Of note, placement of the stent was difficult with a tight ureter and difficulty in passing by the distal obstructing stone. At this point the patient's bladder was obtained and the scope was removed. The patient tolerated she procedure with no complications. DISPOSITION The patient will be discharged home with follow-up in the urology clinic in 1-2 weeks for definitive management of stone burden. Evert Barahona M.D. SML/BT /8:17 AM /9:22 AM MTDNay
== END 2016-11-19 16:49 | disposition home or self-care (01) ==
LOC: NEPE 06:58 → INTOOBSV 09:16 → NEDA 09:16 → NEPGCP 15:45 → N07B 11-19 07:36 → NEDA 11-19 08:58 → NEPGCP 11-19 09:36
PROVIDERS: ADMIT Family Medicine; ATTEND Family Medicine
DX: N13.2 Hydronephrosis with renal and ureteral calculous obstruction (principal); N20.2 Calculus of kidney with calculus of ureter; R10.31 Right lower quadrant pain; R19.7 Diarrhea, unspecified; R11.0 Nausea; E78.00 Pure hypercholesterolemia, unspecified; F17.210 Nicotine dependence, cigarettes, uncomplicated; Z79.899 Other long term (current) drug therapy; Z87.442 Personal history of urinary calculi; K63.9 Disease of intestine, unspecified; E78.5 Hyperlipidemia, unspecified; Z23 Encounter for immunization
CPT/HCPCS: 00810; 00910; 45385; 52332; 74176; 80048; 80053; 81001; 82150; 82272; 83690; 84550; 85025; 87493; 88305; 90732; 93005; 96374; 96375; 99285; C2617; G0009; G0378; J1170; J2250; J2270; J2405; J3010; J7030; 90471